=== PATIENT | male | born 1995 | race Caucasian/White ===

== ENCOUNTER 2024-02-23 09:32 | Emergency (ER) | payer OTHER ==
[~2024-02-23] VITALS: Ht 167.6 cm; Wt 72.7 kg
[2024-02-23 09:37] VITALS: TEMP 98.2
[2024-02-23] MEDS: SODIUM CHLORIDE 0.9% 1,000 ML IV ONE (10:03)
[2024-02-23] MEDS: ACETAMINOPHEN 500 MG TABLET PO ONE (10:06)
[2024-02-23] MEDS: MAG HYDROX/ALUMINUM HYD/SIMETH 30 ML SUSPENSION UDCUP PO ONE (10:07)
[2024-02-23 10:08] LABS: BASOPHILS % (AUTO) 0.6 % (0.0-2.0); EOSINOPHILS % (AUTO) 0.3 % (1.0-6.0); HEMATOCRIT 47.7 % (41-53); HEMOGLOBIN 16.1 g/dL (13.5-17.5); LYMPHOCYTES # (AUTO) 1.3 K/uL (1.0-4.8); LYMPHOCYTES % (AUTO) 13.3 % (22.0-44.0); MEAN CORPUSCULAR HEMOGLOBIN 31.1 pg (26.0-34.0); MEAN CORPUSCULAR HGB CONC 33.8 G/dL (31.0-37.0); MEAN CORPUSCULAR VOLUME 92 fL (80-100); MONOCYTES # (AUTO) 0.7 K/uL (0.1-1.0); MONOCYTES % (AUTO) 6.8 % (2.0-9.0); NEUTROPHILS # (AUTO) 7.6 K/uL (1.8-7.7); PLATELET COUNT (AUTO) 292 K/uL (150-450); RED BLOOD CELL COUNT(AUTO) 5.17 MIL/uL (4.50-5.90); RED CELL DISTRIBUTION WIDTH 13.1 % (11.5-14.5); WHITE BLOOD COUNT (AUTO) 9.7 K/uL (4.5-11.0)
[2024-02-23] MEDS: ONDANSETRON HCL 4 MG/2 ML VIAL IVP ONE (10:08)
[2024-02-23] MEDS: KETOROLAC TROMETHAMINE 30 MG/ML VIAL IVP ONE (10:08)
[2024-02-23] MEDS: FAMOTIDINE 20 MG/2 ML VIAL IVP ONE (10:08)
[2024-02-23] MEDS ORDERED: IOHEXOL 350 MG/ML 100 ML VIAL ONE (10:14)
[2024-02-23] MEDS ORDERED: SODIUM CHLORIDE 0.9% 100 ML ONE (10:15)
[2024-02-23 10:17] LABS: ANION GAP 10 mmol/L (8-16); CALCIUM, TOTAL 10.1 mg/dL (8.8-10.5); CARBON DIOXIDE 33 mmol/L (22-29); CHLORIDE 97 mmol/L (98-107); CREATININE 1.15 mg/dL (0.60-1.30); GLOMERULAR FILTR. RATE CALC > 60 mL/min (>60); GLUCOSE,RANDOM 120 mg/dL (70-110); POTASSIUM 3.8 mmol/L (3.5-5.1); SODIUM SERUM 140 mmol/L (136-145); UREA NITROGEN, BLOOD 14 mg/dL (7-18)
[2024-02-23 10:23] LABS: ALANINE AMINOTRANSFERASE 24 U/L (12-78); ALBUMIN 4.6 g/dL (3.4-5.0); ALKALINE PHOSPHATASE 67 U/L (46-116); ASPARTATE AMINOTRANSFERASE 21 U/L (15-37); BILIRUBIN,TOTAL 0.9 mg/dL (0.1-1.0); LIPASE 19 U/L (16-77); TOTAL PROTEIN, SERUM 8.5 g/dL (6.4-8.2)
[2024-02-23 11:58] LABS: MAGNESIUM 2.2 mg/dL (1.80-2.40); PHOSPHORUS 2.1 mg/dL (2.5-4.9)
[2024-02-23] MEDS: DiphenhydrAMINE HCL 50 MG/ML VIAL IVP ONE (12:03)
[2024-02-23] MEDS: METOCLOPRAMIDE HCL 5 MG/ML 2 ML VIAL IVP ONE (12:03)
[2024-02-23 12:11] LABS: INFLUENZA A-RTPCR,COMBO NEGATIVE (NEGATIVE); INFLUENZA B-RTPCR,COMBO NEGATIVE (NEGATIVE); RESPIRATORY SYNCYTIAL VRS-PCR NEGATIVE (NEGATIVE)
[2024-02-23 12:18] LABS: SARS COVID19 RTPCR, COMBO POSITIVE (NEGATIVE)
[2024-02-23] MEDS ORDERED: ACET-3385 PO (12:56)
[2024-02-23] MEDS ORDERED: ONDA-104 PO (12:56)
[2024-02-23] MEDS: POTASSIUM PHOS,M-BASIC-D-BASIC 20 MMOL in DEXTROSE 5%-WATER 150 ML IV ONE (13:33)
[2024-02-23 16:41] VITALS: BP 132/59; PULSE 61; RESP 22
== END 2024-02-23 16:42 | disposition home or self-care (01) ==
LOC: EDBD 09:32 → EMS 09:32
DX: U07.1 COVID-19 (principal); R11.10 Vomiting, unspecified; E83.39 Other disorders of phosphorus metabolism; Z79.899 Other long term (current) drug therapy
CPT/HCPCS: 99285; 74177; 96375; 96365; 0241U; 96361; 80048; 80076; 83690; 83735; 84100; 85025; 36415; 93005; Q9967; J1200; J3490 ×2; J1885; J2765; J2405; J7060; J7030; J7050